=== PATIENT | female | born 1965 | race Caucasian/White ===

== ENCOUNTER 2019-08-05 15:19 | Emergency (ER) | payer BC, OTHER ==
[~2019-08-05] VITALS: Ht 165.1 cm; Wt 90.9 kg
[2019-08-05 15:43] VITALS: BP 157/84
[2019-08-05] MEDS ORDERED: BENZ-16 PO (16:24)
[2019-08-05] MEDS ORDERED: AZIT-63 PO (16:24)
[2019-08-05] MEDS ORDERED: ALBU8.5H8 IH (16:24)
[2019-08-05] MEDS ORDERED: PRED20TA PO (16:24)
== END 2019-08-05 16:33 | disposition home or self-care (01) ==
LOC: ER 15:20
DX: J21.9 Acute bronchiolitis, unspecified (principal); Z88.0 Allergy status to penicillin; Z88.1 Allergy status to other antibiotic agents; Z79.899 Other long term (current) drug therapy
CPT/HCPCS: 99283